=== PATIENT | female | born 1930 | race Caucasian/White ===

== ENCOUNTER 2017-07-11 12:10 | Inpatient (IN) | payer OTHER ==
[~2017-07-11] VITALS: Ht 157.5 cm; Wt 78.1 kg
[~2017-07-11 12:10] MED LIST: ALENDRONATE SOD70 M1 PO; ASPIR 8181 MG PO; BENICAR40 MG PO; DONEPEZIL HCL10 M1 PO; HEMORRHOIDAL TOP; HYDROXYCHLOROQ200 M2 PO; LEVOTHYROXINE25 MCG PO; NORVASC5 M1 PO; OMEPRAZOLE20 M2 PO; PERCOCET 325 MG1 TA2 PO; PREDNISOLO15 MG/5 M4 PO; PREDNISONE5 M1 PO; RED YEAST RICE600 M1 PO; SIMVASTATIN20 MG PO; SULFASALAZINE500 M2 PO; VITAMIN D31000 UNI2 PO; [UNRECOGNIZED DRUG - OTHER] TOP
--- NOTE | 2017-07-11 12:13 | ED MVC/FALL/TRAUMA COMPLAINT ---
History of Present Illness General Chief Complaint: Fall Stated Complaint: S/P FALL, LEFT HIP PAIN Source: patient, family, old records, EMS Exam Limitations: no limitations Vital Signs & Intake/Output Vital Signs & Intake/Output Vital Signs Date Time Temp Pulse Resp B/P B/P Pulse O2 O2 Flow FiO2 Mean Ox Delivery Rate 07/11 1622 96.3 61 18 119/54 97 Room Air 07/11 1433 66 18 123/59 96 Room Air 07/11 1316 98 Room Air 07/11 1213 98.5 66 18 142/65 98 Room Air Allergies Coded Allergies: adhesive tape (UNKNOWN 07/11/17) Reconcile Medications Amlodipine Besylate (Norvasc) 5 MG TABLET 1 TAB PO DAILY HEART (Reported) Cholecalciferol (Vitamin D3) 1,000 UNIT TABLET 1 TAB PO DAILY VITAMIN SUPPORT (Reported) Donepezil HCl 10 MG TABLET 1 TAB PO DAILY MEMORY (Reported) Hydroxychloroquine Sulfate 200 MG TABLET 1 TAB PO BID UNKNOWN (Reported) Levothyroxine Sodium 25 MCG TABLET 1 TAB PO DAILY AC THYROID (Reported) Losartan Potassium 100 MG TABLET 1 TAB PO DAILY HEART (Reported) Omeprazole 20 MG CAPSULE.DR 1 CAP PO DAILY GI (Reported) Prednisone 5 MG TABLET 1 TAB PO DAILY STEROID (Reported) Red Yeast Rice 600 MG CAPSULE 1 CAP PO DAILY SUPPLEMENT (Reported) Sulfasalazine 500 MG TABLET 1 TAB PO BID UNKNOWN (Reported) Vit C/E/Zn/Coppr/Lutein/Zeaxan (Preservision Areds 2 Softgel) 250-200-40 CAPSULE 1 CAP PO BID EYE (Reported) Triage Nurses Notes Reviewed? yes Onset: Abrupt Duration: hour(s): (1), constant Timing: recent history Severity: moderate, severe Severity Numbers: 10 Injuries/Fall Location: lower extremity Method of Injury: fall Loss of Consciousness: no loss of consciousness Modifying Factors: Worsens With: movement, palpation. Associated Symptoms: denies HPI: 86 year old female with hypertension, hyperlipidemia, sigmoid colon resection, cecum polypectomy, and PMR, and abdominal hysterectomy presents brought in by ambulance status post mechanical fall onto her left hip just prior to arrival resents complaining of 10 out of 10 severe aching left hip pain radiating into her thigh. She was unable to get up. She did not hit her head there is no loss of consciousness per family. She is acting her normal self per family. On arrival radha denies headache neck back or chest or abdominal pain no back pain she denies any foot or ankle pain. She is not on blood thinners (Marquis Hodges) Past History Travel History Traveled to [place] past 21 day No Medical History Any Pertinent Medical History? see below for history Cardiovascular: CAD, hypertension Gastrointestinal: GERD Endocrine: hypoparathyroidism Tetanus Vaccine: 09/23/11 Surgical History Surgical History: hysterectomy, colon resection Psychosocial History Who do you live with Patient/Self What is your primary language Ivorian Family History Hx Contributory? No (Marquis Hodges) Review of Systems Review of Systems Constitutional: Reports: see HPI. Comments Review of systems: See HPI, All other systems negative. Constitutional, no chills no fever, HEENT: no sore throat no congestion Cardiovascular: No chest pain , no palpitation Skin: no rashes, no change in skin Respiratory: No dyspnea no cough GI: No nausea no vomiting, : No dysuria No hematuria, no frequency Muscle skeletal: joint pain, no back pain, no neck pain, Neurologic: , no headache Heme/endocrine: No bruising Immunology: No lymphadenopathy (Marquis Hodges) Physical Exam Physical Exam General Appearance: well developed/nourished, alert, awake Comments: Well-developed well-nourished person in no acute distress HEENT: Normal EENT exam; PERRL, EOMI, no nystagmus. HEAD is atraumatic. moist mucous membranes. Neck: Supple, nontender, normal range of motion without pain or tenderness Back: Nontender, no CVA tenderness. Full range of motion Cardiovascular: Regular rate and rhythms no murmurs rubs or gallops, normal JVP Respiratory: Chest nontender.There were no bony deformities, no asymmetry. No respiratory distress. Patient speaking in full complete sentences. Breath sounds clear to auscultation bilaterally: NO W/R/R Abdomen: Soft, nontender nondistended, no appreciable organomegaly. Normal bowel sounds. No rebound/guarding, No appreciable enlargement of the abdominal aorta, No ascites. Shoulder: Atraumatic/Stable. FROM . Elbow: Atraumatic/stable. FROM. No laxity Upper arm/Forearm: Atraumatic. Nontender. No edema, 5 out of 5 quality auditor strength noted to bilateral upper extremities Hand/Wrist: Atraumatic/stable. Skin intact. FROM Pulses: Normal/equal radial pulses bilaterally. Brisk cap refill Hip/Pelvis: The right hip is Atraumatic/Stable. Range of motion is unable to be assessed in the left hip secondary to pain there is no shortening or external rotation Knee: The left knee range of motion is unable to be assessed secondary to pain in the left hip, the right knee is Atraumatic/stable. FROM of the right knee. No joint swelling, no effusion. No laxity. Negative rachel/anterior drawer test. No pain with ROM Leg: Atraumatic. Nontender. No edema, 5 out of 5 strength in the lower extremity, normal dorsiflexion of great toe bilaterally, gross sensation is intact Ankle/Foot: Atraumatic/stable. Skin intact. FROM. No swelling, no effusion. No laxity on exam Pulses: Normal/equal DP/PT pulses bilaterally. Brisk cap refill Neuro: Alert oriented x3, motor sensory normal, cranial nerves II through XII grossly intact. There were no obvious focal neurologic abnormalities. Skin: No appreciable rash on exposed skin, skin is warm and dry. Psych: Mood and affect is normal, memory and judgment is normal. Core Measures ACS in differential dx? No CVA/TIA Diagnosis No Sepsis Present: No Sepsis Focused Exam Completed? No (Meli BATES,Marquis) Progress Differential Diagnosis: C/T/L spine injury, ext injury, ICH, pelvis injury, spinal cord injury Plan of Care: Orders Procedure Date/time Status CBC WITHOUT DIFFERENTIAL 07/12 0600 Active BASIC ELECTROLYTES PLUS BUN&CR 07/12 0600 Active Regular Diet 07/11 D Active PT Evaluate & Treat 07/11 1520 Active Pathway - chart 07/11 1441 Active House Staff 07/11 1441 Active Patient Data 07/11 1441 Active Code Status 07/11 1441 Active OXYGEN SETUP (GEN) 07/11 1436 Active Saline Lock 07/11 1436 Active Admit to inpatient 07/11 1436 Active Vital Signs 07/11 1436 Active Activity/Ambulation 07/11 1436 Active Code Status 07/11 1436 Complete [place], Insertion/Removal/Asses 07/11 1430 Active CULTURE,URINE 07/11 1430 Active EKG 07/11 1428 Active Intake & Output 07/11 1349 Active PARTIAL THROMBOPLASTIN TIME 07/11 1222 Complete PROTHROMBIN TIME 07/11 1222 Complete COMPREHENSIVE METABOLIC PANEL 07/11 1222 Complete CBC WITHOUT DIFFERENTIAL 07/11 1222 Complete VTE Mechanical Prophylaxis 07/11 UNK Active Current Medications Sig/Anthony Start time Last Medication Dose Stop Time Status Admin Amlodipine Besylate 5 MG DAILY 07/12 1000 AC (Norvasc) Donepezil HCl 10 MG DAILY 07/12 1000 AC (Aricept) Losartan Potassium 100 MG DAILY 07/12 1000 AC (Cozaar) Prednisone 5 MG DAILY 07/12 1000 AC Levothyroxine Sodium 0.025 MG DAILY AC 07/12 0700 AC (Synthroid) Omeprazole 20 MG DAILY AC 07/12 0700 AC (Prilosec) Hydroxychloroquine 200 MG BID 07/11 2200 AC Sulfate (Plaquenil 200MG Tab) Sulfasalazine 500 MG BID 07/11 2200 CAN (Azulfidine 500 MG Tablet) Sodium Chloride 1,000 ML Q13H 07/11 1530 AC 07/11 (Normal Saline 0.9%) 1554 Heparin Sodium 5,000 UNIT Q8 07/11 1524 AC 07/11 (Porcine) 1553 Acetaminophen 325 MG Q6P PRN 07/11 1445 AC (Tylenol) Morphine Sulfate 2 MG Q4P PRN 07/11 1445 AC (MORPHINE SULFATE) Laboratory Tests 07/11/17 1238: Anion Gap 12, Estimated GFR 47 L, BUN/Creatinine Ratio 27.3 H, Glucose 87, Calcium 10.4 H, Total Bilirubin 0.7, AST 27, ALT 32, Alkaline Phosphatase 68, Total Protein 6.2 L, Albumin 3.6, Globulin 2.6, Albumin/Globulin Ratio 1.4, PT 11.6, INR 1.06, APTT 25, CBC w Diff NO MAN DIFF REQ, RBC 4.07 L, MCV 88.3, MCH 29.0, MCHC 32.8 L, RDW 13.9, MPV 7.2 L, Gran % 74.8, Lymphocytes % 16.5 L, Monocytes % 7.6, Eosinophils % 0.7, Basophils % 0.4, Absolute Granulocytes 8.2 H, Absolute Lymphocytes 1.8, Absolute Monocytes 0.8 H, Absolute Eosinophils 0.1 , Absolute Basophils 0 Microbiology 07/11 1545 URINE ROUT: Urine Culture - RECD X-rays ordered patient medicated with morphine 4 IV labs ordered old records reviewed CAT scan ordered after x-rays were reviewed, case discussed with Dr. SMITH, Patient medicated with additional 2 mg of morphine fully catheter placed I spoke and went over the findings of the CAT scan x-rays with Dr. munguia- radiologist's commenting that there is no significant displacement he advised that the patient should be admitted to medicine they will consult however there is no surgical intervention needed at this time. I discussed with the patient and her family her findings and need for admission Case discussed with Dr. mariscal will admit Diagnostic Imaging: Viewed by Me: Radiology Read. Discussed w/RAD: Radiology Read. Radiology Impression: PATIENT: RADHA CARDONA PRESENT AGE: 86 PATIENT ACCOUNT NO: [id number] : 30 LOCATION: [facility] ORDERING PHYSICIAN: Marquis BATES SERVICE DATE: 07/11/17 EXAM TYPE: RAD - XRY-CHEST XRAY, SINGLE VIEW EXAMINATION:\H\ \N\XR CHEST CLINICAL INFORMATION: Pelvic fracture COMPARISON: Multiple priors, most recently 2017 TECHNIQUE: Frontal view of the chest was obtained. FINDINGS: The lungs are well expanded. There is no focal consolidation, edema, or effusion. No pneumothorax. The cardiomediastinal silhouette is unchanged, with a calcified aorta. No acute osseous abnormality. IMPRESSION: No acute pulmonary findings. DICTATED BY: Darin Zambrano MD DATE/TIME DICTATED:07/11/171403 RN REGISTRY:SARAH DATE/TIME TRANSCRIBED:07/11/171403 CONFIDENTIAL, DO NOT COPY WITHOUT APPROPRIATE AUTHORIZATION. <Electronically signed in Other Vendor System> SIGNED BY: Darin Zambrano MD 07/11/171407, PATIENT: RADHA CARDONA PRESENT AGE: 86 PATIENT ACCOUNT NO: [id number] : 30 LOCATION: [facility] ORDERING PHYSICIAN: Marquis BATES SERVICE DATE: 07/11/17122 EXAM TYPE: RAD - XRY-AP PELVIS; XRY-HIP 2-3 VIEWS, LEFT; XRY-KNEE COMPLETE LEFT EXAMINATION: XR PELVIS X-RAY LEFT KNEE X-RAY LEFT HIP CLINICAL INFORMATION: Hip fracture. COMPARISON: CT pelvis dated 07/11/2017. TECHNIQUE: AP view of the pelvis. Frontal and lateral radiographs of the left knee were performed. 3 radiographs of the left hip were performed. FINDINGS: There are multiple pelvic fractures identified. The left superior and inferior pubic rami are fractured. The superior pubic ramus appears fractured in several locations. Fracture does not extend to the level of the symphysis pubis. Comminuted fractures of the inferior pubic ramus are seen. There is an iliac bone fracture, comminuted. The left femoral head appears well-seated within the acetabula. There is degenerative change of the left hip joint. The proximal left femur appears intact. The left knee joint appears intact. There is mild medial and lateral knee joint space narrowing. IMPRESSION: Comminuted fractures of the left superior and inferior pubic rami. Comminuted left iliac bone fracture. DICTATED BY: Juaquin Lee MD DATE/TIME DICTATED:07/11/171403 RN REGISTRY:SARAH DATE/TIME TRANSCRIBED:07/11/171403 CONFIDENTIAL, DO NOT COPY WITHOUT APPROPRIATE AUTHORIZATION. <Electronically signed in Other Vendor System> SIGNED BY: Juaquin Lee MD 07/11/171426, PATIENT: RADHA CARDONA PRESENT AGE: 86 PATIENT ACCOUNT NO: [id number] : 30 LOCATION: [facility] ORDERING PHYSICIAN: Marquis BATES SERVICE DATE: 07/11/17 EXAM TYPE: RAD - XRY-CHEST XRAY, SINGLE VIEW EXAMINATION:\H\ \N\XR CHEST CLINICAL INFORMATION: Pelvic fracture COMPARISON: Multiple priors, most recently 05/27/2017 TECHNIQUE: Frontal view of the chest was obtained. FINDINGS: The lungs are well expanded. There is no focal consolidation, edema, or effusion. No pneumothorax. The cardiomediastinal silhouette is unchanged, with a calcified aorta. No acute osseous abnormality. IMPRESSION: No acute pulmonary findings. DICTATED BY: Darin Zambrano MD DATE /TIME DICTATED:07/11/171403 RN REGISTRY:SARAH DATE/TIME TRANSCRIBED: 07/11/171403 CONFIDENTIAL, DO NOT COPY WITHOUT APPROPRIATE AUTHORIZATION. < Electronically signed in Other Vendor System> SIGNED BY: Darin Zambrano MD 07/11/171407 Initial ED EKG: normal sinus rhythm, nonspecific ST T wave chg (Marquis Hodges) Departure Departure Time of Disposition: 1429 Disposition: STILL A PATIENT Condition: Stable Clinical Impression Primary Impression: Pubic ramus fracture Referrals: Lul Mariscal MD (PCP/Family) Departure Forms: Customer Survey General Discharge Information Admission Note Spoke With: Lul Mariscal MD Documentation of Exam: Documentation of any treatments & extenuating circumstances including Concerns Regarding Discharge (functional status, medication knowledge or non-compliance, living conditions, etc.) that warrant an admission rather than observation: IV pain control orthopedist consult trend labs premature discharge would BE medically harmful patient will require short-term rehabilitation placement as she is nonweightbearing at this time (Marquis Hodges) PA/MOVEMENT EDUCATION SPECIALIST Co-Sign Statement Statement: ED Attending supervision documentation- x I saw and evaluated the patient. I have also reviewed all the pertinent lab results and diagnostic results. I agree with the findings and the plan of care as documented in the PA's/MOVEMENT EDUCATION SPECIALIST's documentation. Fall, pelvic fractures non operative [] I have reviewed the ED Record and agree with the PA's/MOVEMENT EDUCATION SPECIALIST's documentation. [] Additions or exceptions (if any) to the PAs/MOVEMENT EDUCATION SPECIALIST's note and plan are summarized below: [] (Elias BUSTILLO,Jackson)
[2017-07-11] MEDS ORDERED: PRESERVISION A1 EAC1 PO (12:58)
[2017-07-11] MEDS ORDERED: LOSARTAN POTAS100 M1 PO (12:58)
[2017-07-11 12:59] LABS: PT 11.6 SEC (9.4-12.5); PTT 25 SEC (25-37)
[2017-07-11 13:02] LABS: ABSOLUTE BASOPHIL COUNT 0 /CUMM (0.0-0.2); ABSOLUTE EOSINOPHIL COUNT 0.1 /CUMM (0.0-0.7); ABSOLUTE GRANULOCYTE CT 8.2 /CUMM (1.4-6.5); ABSOLUTE LYMPH COUNT 1.8 /CUMM (1.2-3.4); ABSOLUTE MONOCYTE COUNT 0.8 /CUMM (0.10-0.60); BASOPHIL % 0.4 % (0.0-2.0); EOSINOPHIL % 0.7 % (0-5); GRANULOCYTE % 74.8 % (42.2-75.2); HEMATOCRIT 35.9 % (37-47); MEAN CORPUSCULAR HGB CONC 32.8 G/DL (33.0-37.0); MEAN CORPUSCULAR VOLUME 88.3 FL (81.0-99.0); MEAN PLATELET VOLUME 7.2 FL (7.4-10.4); PLATELET COUNT 223 /CUMM (130-400); RBC DISTRIBUTION WIDTH 13.9 % (11.5-14.5); RED BLOOD CELL CT 4.07 /CUMM (4.20-5.40); WHITE BLOOD CELL COUNT 10.9 /CUMM (4.8-10.8)
--- NOTE | 2017-07-11 14:06 | CT SCAN REPORT ---
EXAMINATION: CT PELVIS WITHOUT CONTRAST CLINICAL INFORMATION: Fall with left hip pain COMPARISON: CT performed 04/18/2014. TECHNIQUE: Helical scanning was performed with submillimeter collimation through the pelvis. Sagittal and coronal multiplanar 2-D reconstructions were obtained. DLP: 916 mGy-cm FINDINGS: PELVIS: There is stranding along the left pelvic sidewall suggestive of hematoma. Asymmetric fullness of the musculature as well, suggestive of hematoma. The bladder is unremarkable. No significant mass effect. The visualized bowel appears unremarkable. No lymphadenopathy. OSSEOUS STRUCTURES: There are multiple pelvic fractures. There are fractures of the left superior and inferior pubic rami. The superior pubic ramus is fractured in multiple locations, with no significant displacement of the fragments. The fracture line does not extend to the pubic symphysis or to the acetabulum. There is a comminuted left inferior pubic ramus fracture with offset of the fracture fragments. Once again, the pubic symphysis is maintained, with chondrocalcinosis noted. There is a comminuted left iliac bone fracture. This involves the iliac wing and crest. The fracture line extends to the anterior inferior aspect of the sacroiliac joint, without widening of the joint. Multiple interposed cortical fragments are seen along the fracture. The femoral heads remain well-seated within their acetabula. Mild degenerative changes are seen at both hips with joint space narrowing and osteophyte formation. Chondrocalcinosis present. Degenerative changes at the lower lumbar spine. IMPRESSION: 1. Comminuted fractures of the left superior and inferior pubic rami. 2. Comminuted left iliac bone fracture. 3. Small hematoma along the left pelvic sidewall and within the associated musculature.
--- NOTE | 2017-07-11 14:08 | RADIOLOGY REPORT ---
EXAMINATION:\H\ \N\XR CHEST CLINICAL INFORMATION: Pelvic fracture COMPARISON: Multiple priors, most recently 05/27/2017 TECHNIQUE: Frontal view of the chest was obtained. FINDINGS: The lungs are well expanded. There is no focal consolidation, edema, or effusion. No pneumothorax. The cardiomediastinal silhouette is unchanged, with a calcified aorta. No acute osseous abnormality. IMPRESSION: No acute pulmonary findings.
--- NOTE | 2017-07-11 14:27 | RADIOLOGY REPORT ---
EXAMINATION: XR PELVIS X-RAY LEFT KNEE X-RAY LEFT HIP CLINICAL INFORMATION: Hip fracture. COMPARISON: CT pelvis dated 07/11/2017. TECHNIQUE: AP view of the pelvis. Frontal and lateral radiographs of the left knee were performed. 3 radiographs of the left hip were performed. FINDINGS: There are multiple pelvic fractures identified. The left superior and inferior pubic rami are fractured. The superior pubic ramus appears fractured in several locations. Fracture does not extend to the level of the symphysis pubis. Comminuted fractures of the inferior pubic ramus are seen. There is an iliac bone fracture, comminuted. The left femoral head appears well-seated within the acetabula. There is degenerative change of the left hip joint. The proximal left femur appears intact. The left knee joint appears intact. There is mild medial and lateral knee joint space narrowing. IMPRESSION: Comminuted fractures of the left superior and inferior pubic rami. Comminuted left iliac bone fracture.
--- NOTE | 2017-07-11 14:43 | History & Physical ---
Anshu BUSTILLO,[facility] 07/11/17 1440: General Information and HPI MD Statement: I have seen and personally examined RADHA CARDONA and documented this H&P. The patient is a 86 year old F who presented with a patient stated chief complaint of [fall, L hip pain ]. Source of Information: patient, old records Exam Limitations: no limitations History of Present Illness: Patient is a 86-year-old female with past medical history of polymyalgia rheumatica and seronegative rheumatoid arthritis on steroids and hydroxychloroquine, dementia on Aricept, cardiac catheterization on 07/23, hypertension, dyslipidemia, mild depression, colon cancer with history of colectomy and polypectomy, hemorrhoidectomy, GERD, ovarian cyst, asthma/COPD. She presented to [facility] on 07/11 after a mechanical fall. Patient was in usual state of health until today when she suffered a mechanical fall after tripping over the stairs to her house. She experienced intense pain in her left hip and needed help from her to get up and go inside. Patient's daughter was called who came home and called ambulance. The patient denies any loss of consciousness. She did not hit her head, there was no period of blacking out. She denies any palpitations, dizziness, chest pain, lightheadedness before the fall. She denies any seizure-like activity, tongue bite, urinary incontinence or fecal incontinence. The fall was witnessed by the . At present patient patient complains of intense aching pain radiating from left hip to thigh. She is unable to sit up. Allergies/Medications Allergies: Coded Allergies: adhesive tape (UNKNOWN 07/11/17) Home Med list Acetaminophen (Tylenol) 325 MG TABLET 325 MG PO Q6P PRN PAIN SCALE 1-3 (MILD) Acetaminophen 500 MG TABLET 1 TAB PO Q8P PRN PAIN SCALE 4-6 (MODERATE) Amlodipine Besylate (Norvasc) 5 MG TABLET 1 TAB PO DAILY HEART (Reported) Budesonide 0.25 MG/2 ML AMPUL.NEB 1 Vial INH/MICHAEL BID COPD ASTHMA (Reported) Cholecalciferol (Vitamin D3) 1,000 UNIT TABLET 1 TAB PO DAILY VITAMIN SUPPORT (Reported) Cyanocobalamin (Vitamin B-12) 1,000 MCG TABLET 1 TAB PO DAILY SUPPLEMENT Docusate Sodium 100 MG CAPSULE 100 MG PO BID CONSTIPATION Donepezil HCl 10 MG TABLET 1 TAB PO DAILY MEMORY (Reported) Hydroxychloroquine Sulfate 200 MG TABLET 1 TAB PO BID RA (Reported) Levothyroxine Sodium 25 MCG TABLET 1 TAB PO DAILY AC THYROID (Reported) Losartan Potassium 100 MG TABLET 1 TAB PO DAILY HEART (Reported) Omeprazole 20 MG CAPSULE.DR 1 CAP PO DAILY GI (Reported) Polyethylene Glycol 3350 (Miralax) 17 GRAM/DOSE POWDER 17 GM PO DAILY CONSTIPATION Prednisone 5 MG TABLET 1 TAB PO DAILY STEROID (Reported) Red Yeast Rice 600 MG CAPSULE 1 CAP PO DAILY SUPPLEMENT (Reported) Sennosides (Senokot) 8.6 MG TABLET 2 TAB PO AT BEDTIME PRN CONSTIPATION Tramadol HCl (Ultram) 50 MG TABLET 1 TAB PO BIDP PRN PAIN SCALE 7-10 (SEVERE) Vit C/E/Zn/Coppr/Lutein/Zeaxan (Preservision Areds 2 Softgel) 250-200-40 CAPSULE 1 CAP PO BID EYE (Reported) Compliance With Home Meds: GOOD Past History Travel History Traveled to [place] past 21 day No Medical History Neurological: NONE EENT: NONE Cardiovascular: CAD, hypertension Respiratory: NONE Gastrointestinal: GERD Hepatic: NONE Renal: NONE Musculoskeletal: NONE Psychiatric: NONE Endocrine: hypothyroidism Blood Disorders: NONE Cancer(s): NONE Tetanus Vaccine: 09/23/11 Surgical History Surgical History: CABG, hysterectomy, colon resection, hernia repair Past Family/Social History Family History Relations & Conditions if any Relation not specified for: *No pertinent family history Psychosocial History Where do you live? Home Who Do You Live With? spouse Smoking Status: Never Smoked ETOH Use: denies use Illicit Drug Use: denies illicit drug use Functional Ability ADLs Independent: dressing, eating, toileting, bathing. Ambulation: independent IADLs Independent: shopping, housework, finances, food prep, telephone, transportation , medication admin. Review of Systems Review of Systems Constitutional: Denies: chills, fever. EENTM: Reports: no symptoms. Cardiovascular: Denies: chest pain, palpitations. Respiratory: Denies: cough, orthopnea, short of breath. GI: Reports: no symptoms. Genitourinary: Reports: no symptoms. Musculoskeletal: Reports: joint pain. Skin: Reports: no symptoms. Exam & Diagnostic Data Last 24 Hrs of Vital Signs/I&O Vital Signs Date Time Temp Pulse Resp B/P B/P Pulse O2 O2 Flow FiO2 Mean Ox Delivery Rate 07/11 1433 66 18 123/59 96 Room Air 07/11 1316 98 Room Air 07/11 1213 98.5 66 18 142/65 98 Room Air Intake & Output 07/11 1600 07/11 0800 07/11 0000 Intake Total 100 Output Total Balance 100 Intake, IV 100 Patient 170 lb Weight Weight Estimated Measurement Method Physical Exam General Appearance Alert, Oriented X3, Cooperative Skin No Rashes HEENT Atraumatic Neck Supple Cardiovascular Regular Rate, Normal S1, Normal S2, systolic murmur? Lungs Clear to Auscultation, anteriorly asculated Abdomen Normal Bowel Sounds, Soft, No Tenderness Neurological Normal Speech Extremities No Edema, L hip/L knee ROM not tested due to pain, no shortnening or extral rotation noticed on inspection Body Front and Back (Adult) 1) fracture site, tenderness, no heamtoma felt Last 24 Hrs of Labs/Hajrinder: Laboratory Tests 07/11/17 1238: Anion Gap 12, Estimated GFR 47 L, BUN/Creatinine Ratio 27.3 H, Glucose 87, Calcium 10.4 H, Total Bilirubin 0.7, AST 27, ALT 32, Alkaline Phosphatase 68, Total Protein 6.2 L, Albumin 3.6, Globulin 2.6, Albumin/Globulin Ratio 1.4, PT 11.6, INR 1.06, APTT 25, CBC w Diff NO MAN DIFF REQ, RBC 4.07 L, MCV 88.3, MCH 29.0, MCHC 32.8 L, RDW 13.9, MPV 7.2 L, Gran % 74.8, Lymphocytes % 16.5 L, Monocytes % 7.6, Eosinophils % 0.7, Basophils % 0.4, Absolute Granulocytes 8.2 H, Absolute Lymphocytes 1.8, Absolute Monocytes 0.8 H, Absolute Eosinophils 0.1 , Absolute Basophils 0 Microbiology 07/11 1430 URINE ROUT: Urine Culture - ORD Diagnostic Data CXR Results No acute pulmonary findings. Other Results XRY-AP PELVIS; XRY-HIP 2-3 VIEWS, LEFT; XRY-KNEE COMPLETE LEFT Comminuted fractures of the left superior and inferior pubic rami. Comminuted left iliac bone fracture. CT PELVIS WO IV CONTRAST 1. Comminuted fractures of the left superior and inferior pubic rami. 2. Comminuted left iliac bone fracture. 3. Small hematoma along the left pelvic sidewall and within the associated musculature. Assessment/Plan Assessment: Patient is a 86-year-old female with past medical history of polymyalgia rheumatica and seronegative rheumatoid arthritis on steroids and hydroxychloroquine, , dementia on Aricept, cardiac catheterization on 07/23, hypertension, dyslipidemia, mild depression, colon cancer with history of colectomy and polypectomy, hemorrhoidectomy, GERD, ovarian cyst, mild asthma, mild COPD. she was brought in by ambulance after a mechanical fall. On presentation vital signs WNL Admission labs are significant for leukocytosis 10.9, anemia, creatinine of 1.1, BUN of 30, hypercalcemia of 10.4 Imaging findings dictated above In ED patient received 2 mg and 4 mg of IV morphine and IV Tylenol. She is being admitted to general medicine floor and is being treated and evaluated for following condition #Mechanical fall resulting in Comminuted fractures of the left superior, inferior pubic rami and left iliac bone fracture Patient experienced mechanical fall after tripping over the stairs. The fall was witnessed there was sonia loss of consciousness. She did not hit her head, there was no period of blacking out. She denies any palpitations, dizziness, chest pain, lightheadedness before the fall. She denies any seizure-like activity, tongue bite, urinary incontinence or fecal incontinence. -Admit to general medicine floor -Jamaal Melendrez MD orthopedic has been contacted by ED was suggested conservative management but he will see the patient. Official consult has been placed. -Adequate pain management with IV Tylenol and IV morphine along with lidocaine patch -Orthopedic evaluation -PT evaluation -Patient will benefit from short-term rehabilitation placement -Monitor site of fracture for hematoma development #Anemia H/H 11.8/35.9 -Continue to monitor -Monitor for any bleeding or hematoma development -Check iron studies, folic acid and B12 #Leukocytosis Probably reactive and patient is somewhat dehydrated as well. she is afebrile chest x-ray is clear there is no obvious source of infection -Continue to monitor fever and WBC count -Blood culture 2 -Monitor off antibiotics #Elevated BUN Patient's creatinine on presentation is 1.1 which is at her baseline, BUN is 30, she is probably dehydrated -Gentle IV hydration #History of hypothyroidism Continue levothyroxine and check TSH #Chronic medical conditions hypertension, hyperlipidemia, dementia, PMR, seronegative rheumatoid arthritis, GERD Continue home doses of amlodipine, losartan, donepezil, hydroxychloroquine, prednisone, omeprazole Heart healthy diet/DVT prophylaxis with Alps and subcutaneous heparin Q8/full code Core Measures/Misc (12/29) Acute Coronary Syndrome ACS Diagnosis: No Congestive Heart Failure Congestive Heart Failure Diagnosis No Cerebrovascular Accident CVA/TIA Diagnosis: No VTE (View Protocol) VTE Risk Factors Age>40 No Mechanical VTE Prophylaxis d/t N/A MechProphylax Ordered No VTE Pharm Prophylaxis d/t NA PharmProphylax ordered Sepsis (View protocol) Sepsis Present: No Luke Ro 07/11/17 1600: Assessment/Plan As Ranked By This Provider Problem List: 1. Pubic ramus fracture Resident Review Statement Resident Statement: examined this patient, discussed with internet ecommerce specialist Other Findings: Patient is a 86-year-old pleasant woman with a history of hypertension, polymyalgia rheumatica, RA, mild asthma, mild COPD, dyslipidemia, GERD, was brought into [facility] from her home status post a mechanical fall. Patient had a mechanical fall earlier this morning while trying to take groceries from the car to her house. She was walking up the stairs and tripped and fell down. She denies any lightheadedness, dizziness, aura, headache, chest discomfort, palpitations, seizure-like activity, bowel and bladder incontinence at the time of the fall. She had no loss of consciousness and felt immense pain on her left hip post the fall. Her helped her up and carried her to the house. Ambulance was called by after the episode. Family reports patient was acting herself post the incident. Vitals in the ED was stable Labs showed a white count of 10.9, creatinine 1.1(baseline 1) X-ray showed comminuted fractures of left superior and inferior pubic rami and comminuted left iliac bone fracture. An abdominal CT showed a small hematoma along the left pelvic sidewall and within the associated musculature. Physical exam General: Awake, alert, oriented, in no significant distress HEENT: PERRLA, EOMI Chest: Clear breath sounds CVS S1 and S2 heard, no murmurs Extremities: Unable to move left lower extremity. Tenderness over the left hip. All other extremities within normal limits. Reflexes intact. Assessment Comminuted fractures of left superior and inferior pubic rami Comminuted fracture of left iliac bone Acute kidney injury Polymyalgia rheumatica Seronegative RA Hypertension Hypothyroidism Plan Admit to [facility] Gentle hydration with IV normal saline at 75 cc an hour. Pain control with IV morphine every 4 when necessary Orthopedic consult(discussed with Jamaal Melendrez MD, who recommended conservative management ) Recheck BEP in a.m. Continue home medications prednisone, sulfasalazine and hydroxychloroquine Continue levothyroxin, amlodipine and omeprazole Physical therapy consult DVT prophylaxis subcutaneous heparin Full code Severe pain pathway Pamela BUSTILLO,[facility] 07/11/17 1805: Attending MD Review Statement Attending Statement Attending MD Statement: examined this patient, discuss w/resident/PA/WHEEL AND PINION INSPECTOR, agreed w/resident/PA/WHEEL AND PINION INSPECTOR, discussed with family, reviewed EMR data (avail), discussed with nursing, discussed with case mgmt, reviewed images, amended to note Attending Assessment/Plan: Agree with the bowel Seen and examined independently Discussed with the family at the bedside Exam as noted above Patient is a 86-year-old female with past medical history of polymyalgia rheumatica and seronegative rheumatoid arthritis on steroids and hydroxychloroquine, , dementia on Aricept, cardiac catheterization on 07/23, hypertension, dyslipidemia, mild depression, colon cancer with history of colectomy and polypectomy, hemorrhoidectomy, GERD, ovarian cyst, mild asthma, mild COPD. she was brought in by ambulance after a mechanical fall. Issues include multiple fractures as noted above Osteoporosis Rheumatoid arthritis and polymyalgia on chronic steroids and Plaquenil Mild to moderate COPD with ongoing wheezing Chronic constipation with previous history of colon cancer with previous colectomy and polypectomy and hemorrhoidectomy GERD Mild asthma Mild dementia Dyslipidemia Mild anxiety and depression All the risk factors for coronary artery disease but negative stress test and negative angiogram with no acute coronary events Recommendation Admitted to the hospital Gentle IV hydration Follow hemoglobin and hematocrit Adequate pain medication Start Senokot and docusate twice a day and MiraLAX daily Avoid constipation Physical therapy to see tomorrow with nonweightbearing to the left lower extremity with transfers and sliding. His Would need rehabilitation Continue outpatient medications No need for stress dose steroids Check iron folic acid and B12 Continue B12 by mouth Continue Aricept Continue her levothyroxine and other medications Patient is unable to use inhalers use [id number] DuoNeb and budesonide 0.25 twice a day Patient is unable to use inhalers use [id number] DuoNeb and budesonide 0.25 twice a day
--- NOTE | 2017-07-11 17:35 | Cons- Orthopedic ---
General Information and HPI Consulting Request Date of Consult: 07/11/17 Requested By: Pamela BUSTILLO,Lul Villaseñor Reason for Consult: FALL WITH LEFT PELVIC INJURY Source of Information: patient, family Exam Limitations: no limitations History of Present Illness: 86 Y/O female arrives via EMS after a traumatic fall where she injured her left hip. Patient states she was walking up a step and slipped and fell on her left side. She denies syncope, dizziness or LOC prior to or after the fall. She immediately was helped by her family. She denies any headache neck pain or visual changes. She was unable to get up after the fall due to left hip pain and discomfort. She has a past medicalhistory significant for polymyalgia rheumatica and RA on steroids and hydroxychloroquine. Allergies/Medications Allergies: Coded Allergies: adhesive tape (UNKNOWN 07/11/17) Home Med List: Amlodipine Besylate (Norvasc) 5 MG TABLET 1 TAB PO DAILY HEART (Reported) Cholecalciferol (Vitamin D3) 1,000 UNIT TABLET 1 TAB PO DAILY VITAMIN SUPPORT (Reported) Donepezil HCl 10 MG TABLET 1 TAB PO DAILY MEMORY (Reported) Hydroxychloroquine Sulfate 200 MG TABLET 1 TAB PO BID UNKNOWN (Reported) Levothyroxine Sodium 25 MCG TABLET 1 TAB PO DAILY AC THYROID (Reported) Losartan Potassium 100 MG TABLET 1 TAB PO DAILY HEART (Reported) Omeprazole 20 MG CAPSULE.DR 1 CAP PO DAILY GI (Reported) Prednisone 5 MG TABLET 1 TAB PO DAILY STEROID (Reported) Red Yeast Rice 600 MG CAPSULE 1 CAP PO DAILY SUPPLEMENT (Reported) Sulfasalazine 500 MG TABLET 1 TAB PO BID UNKNOWN (Reported) Vit C/E/Zn/Coppr/Lutein/Zeaxan (Preservision Areds 2 Softgel) 250-200-40 CAPSULE 1 CAP PO BID EYE (Reported) Past History Medical History Neurological: NONE EENT: NONE Cardiovascular: CAD, hypertension Respiratory: asthma, COPD Gastrointestinal: NONE (h/o colon ca), GERD Hepatic: NONE Renal: NONE Musculoskeletal: NONE, osteoarthritis, osteoporosis, rheumatoid arthritis Psychiatric: NONE (demetia) Endocrine: NONE (dyslipidemia), hypothyroidism Blood Disorders: NONE Cancer(s): NONE Surgical History Pertinent Surgical History: CABG, hysterectomy, colon resection hernia repair Family History Relations & Conditions If Any: Relation not specified for: *No pertinent family history Psychosocial History Where Do You Live? Home Who Do You Live With? spouse Smoking Status: Never Smoked ETOH Use: denies use Illicit Drug Use: denies illicit drug use Functional Ability ADLs Independent: dressing, eating, toileting, bathing. Ambulation: independent IADLs Independent: shopping, housework, finances, food prep, telephone, transportation , medication admin. Review of Systems Review of Systems: denies - syncope, dizzinesss, or headache no recent fevers fls or infections chest- NO SOB, no cough heart- no CP abd - no abdominal pain, no loss of bowel or bladder function ext - left posterior back and hip pain Exam & Diagnostic Data Vital Signs and I&O Vital Signs Date Time Temp Pulse Resp B/P B/P Pulse O2 O2 Flow FiO2 Mean Ox Delivery Rate 07/11 1622 96.3 61 18 119/54 97 Room Air 07/11 1433 66 18 123/59 96 Room Air 07/11 1316 98 Room Air 07/11 1213 98.5 66 18 142/65 98 Room Air Intake & Output 07/11 1600 07/11 0800 07/11 0000 07/10 1600 07/10 0800 07/10 0000 Intake Total 100 Output Total Balance 100 Intake, IV 100 Patient 170 lb Weight Weight Estimated Measurement Method Physical Exam: Patient is alert and oriented, answers questions appropriately family present -daughter and friend HEENT -WNL Neck- supple, NT, AROM chest -CTA symmetric without rales ronchi or wheeze heart- RRR without MRG abdomen- rounded without distention, NT left LE -pain along anterior thigh and groin, posterior buttock tenderness ROM not tested, sensory lower extremty bilateral normal distal pulses intact lyons inplace without hematuria Admission Lab Results I reviewed the following labs: Laboratory Tests 07/11 1238 Chemistry Sodium (137 - 145 mmol/L) 143 Potassium (3.5 - 5.1 mmol/L) 3.9 Chloride (98 - 107 mmol/L) 109 H Carbon Dioxide (22 - 30 mmol/L) 22 Anion Gap (5 - 16) 12 BUN (7 - 17 mg/dL) 30 H Creatinine (0.5 - 1.0 mg/dL) 1.1 H Estimated GFR (>60 ml/min) 47 L BUN/Creatinine Ratio (7 - 25 %) 27.3 H Glucose (65 - 99 mg/dL) 87 Calcium (8.4 - 10.2 mg/dL) 10.4 H Total Bilirubin (0.2 - 1.3 mg/dL) 0.7 AST (14 - 36 U/L) 27 ALT (9 - 52 U/L) 32 Alkaline Phosphatase (<127 U/L) 68 Total Protein (6.3 - 8.2 g/dL) 6.2 L Albumin (3.5 - 5.0 g/dL) 3.6 Globulin (1.9 - 4.2 gm/dL) 2.6 Albumin/Globulin Ratio (1.1 - 2.2 %) 1.4 Coagulation PT (9.4 - 12.5 SEC) 11.6 INR (0.90 - 1.19) 1.06 APTT (25 - 37 SEC) 25 Hematology CBC w Diff NO MAN DIFF REQ WBC (4.8 - 10.8 /CUMM) 10.9 H RBC (4.20 - 5.40 /CUMM) 4.07 L Hgb (12.0 - 16.0 G/DL) 11.8 L Hct (37 - 47 %) 35.9 L MCV (81.0 - 99.0 FL) 88.3 MCH (27.0 - 31.0 PG) 29.0 MCHC (33.0 - 37.0 G/DL) 32.8 L RDW (11.5 - 14.5 %) 13.9 Plt Count (130 - 400 /CUMM) 223 MPV (7.4 - 10.4 FL) 7.2 L Gran % (42.2 - 75.2 %) 74.8 Lymphocytes % (20.5 - 51.1 %) 16.5 L Monocytes % (1.7 - 9.3 %) 7.6 Eosinophils % (0 - 5 %) 0.7 Basophils % (0.0 - 2.0 %) 0.4 Absolute Granulocytes (1.4 - 6.5 /CUMM) 8.2 H Absolute Lymphocytes (1.2 - 3.4 /CUMM) 1.8 Absolute Monocytes (0.10 - 0.60 /CUMM) 0.8 H Absolute Eosinophils (0.0 - 0.7 /CUMM) 0.1 Absolute Basophils (0.0 - 0.2 /CUMM) 0 Assessment/Plan Assessment/Plan 86y/o female with mechanical fall left superior and inferior pubic rami fxs left iliac bone fx with comminution and extension into SI inferiorly pelvic hematoma -small along pelvic sidewall continue to follow H/H, hydration conservative management of fractures, no surgery PT to see NWB left lower extremity -transfers and sliding pivots DVT prophalxis as per medicine pain management -IV tylenol/morphine PRN will need rehab/ECF Other Findings/Comments: Aneesh Consult Acknowledgment - Thank you for your consult request.
--- NOTE | 2017-07-11 18:05 | Admission Certification ---
Admission Certification Certification Statement - As attending physician, I certify that at the time of - admission, based on clinical presentation, severity of - symptoms, need for further diagnostic testing and - therapeutic interventions, and risk of adverse outcomes - without in-hospital treatment, in my clinical assessment, - this patient requires an acute hospital stay for a minimum - of two nights or longer. I have also considered psychsocial - factors such as support system, advanced age, financial - issues, cognitive issues, and failed out-patient treatments, - past re-admission history, safety of patient, and lack of - compliance as applicable. Specific rationale supporting this admission is: multiple pelvic fracture, hematoma and severe pain
[2017-07-11] MEDS ORDERED: BUDESONIDE0.25 MG/1 INH/SOL (19:06)
[2017-07-11] MEDS ORDERED: SENOKOT8.6 M2 PO (19:12)
[2017-07-11] MEDS ORDERED: VITAMIN B-121000 MC3 PO (19:12)
[2017-07-11] MEDS ORDERED: MIRALAX119 GM PO (19:12)
[2017-07-11] MEDS ORDERED: DOCUSATE SODIU100 M3 PO (19:12)
[2017-07-11] MEDS ORDERED: MORPHINE SU4 MG/1 M2 IV (19:12)
[2017-07-11] MEDS ORDERED: TYLENOL325 M1 PO (19:12)
--- NOTE | 2017-07-11 19:14 | Patient Discharge Instructions ---
Discharge Instructions General Discharge Information You were seen/treated for: PELVIC FRACTURE Watch for these problems: fever, chills, shortness of breath Special Instructions: -Plz follow up witrh PCP within 1 week of discharge -plz follow up with orthopedic after discharge -continue lovenox for 2 weeks after dischrge from hospital or till you start ambulating -you have a Beavers's catheter in, will need to be removed after 3 days of discharge Diet Continue normal diet: Yes Activity Full Activity/No Limits: No Activity Limited to: No weight bearing Acute Coronary Syndrome Inclusion Criteria At DC or during hospital stay patient has or had the following: ACS DIAGNOSIS No Discharge Core Measures Meds if any: Prescribed or Continued at Discharge Meds if any: NOT Prescribed or Continued at Discharge Congestive Heart Failure Inclusion Criteria At DC or during hospital stay patient has or had the following: CHF DIAGNOSIS No Discharge Core Measures Meds if any: Prescribed or Continued at Discharge Meds if any: NOT Prescribed or Continued at Discharge Cerebrovascular accident Inclusion Criteria At DC or during hospital stay patient has or had the following: CVA/TIA Diagnosis No Discharge Core Measures Meds if any: Prescribed or Continued at Discharge Meds if any: NOT Prescribed or Continued at Discharge Venous thromboembolism Inclusion Criteria VTE Diagnosis No VTE Type NONE VTE Confirmed by (Test) NONE Discharge Core Measures - Per Current guidelines, there needs to be overlap - treatment for the first 5 days of Warfarin therapy. - If discharged on Warfarin prior to 5 days of - overlap therapy, the patient will need to be - assessed for post discharge needs including - *Post discharge parental anticoagulation - *Warfarin and/or parental anticoagulation education - *Follow up date to check INR post discharge At least 5 days overlap therapy as Inpatient No Meds if any: Prescribed or Continued at Discharge Note: Overlap Therapy is Warfarin and Anticoagulant Meds if any: NOT Prescribed or Continued at Discharge
--- NOTE | 2017-07-11 19:17 | Discharge Summary ---
Visit Information Visit Dates Admission Date: 07/11/17 Discharge Date: 07/15/17 Hospital Course Course Attending Physician: Lul Santiago MD Primary Care Physician: Lul Santiago MD Hospital Course: Patient is a 86-year-old pleasant woman with a history of hypertension, polymyalgia rheumatica, RA, mild asthma, mild COPD, dyslipidemia, GERD, was brought into [place] from her home status post a mechanical fall. X-ray showed comminuted fractures of left superior and inferior pubic rami and comminuted left iliac bone fracture. An abdominal CT showed a small hematoma along the left pelvic sidewall and within the associated musculature. Problem list Comminuted fractures of left superior and inferior pubic rami Comminuted fracture of left iliac bone Acute kidney injury Polymyalgia rheumatica Seronegative RA Hypertension Hypothyroidism Hospital course: Patient was admitted to the [facility] floor and treated with IV fluids and IV pain medications Orthopedics was consulted who recommended conservative management. The patient was made nonweightbearing-transfers and sliding. Pain was controlled by IV morphine and Tylenol. Physical therapy worked with the patient while in the hospital. She was discharged to short-term rehabilitation -Continue lovenox for 2 weeks after dischrge from hospital or till she starts ambulating -Pt has a Beavers's catheter in, will need to be removed after 2-3 days of discharge -F/U with PCP and Orthopedics -Maintain pt on extensive bowel regemin she has history of colon cancer s/p colectomy/polypectomy Allergies: Coded Allergies: adhesive tape (UNKNOWN 07/11/17) Disposition Summary Disposition Principal Diagnosis: Comminuted fractures of left superior and inferior pubic rami Comminuted fracture of left iliac bone Additional Diagnosis: ANA Discharge Disposition: SNF Discharge Instructions General Discharge Information Code Status: Full Code Patient's Diet: As tolerated Patient's Activity: Non weight bearing Follow-Up Instructions/Appts: F/U with Dr. Santiago within 1 week of discharge F/u with orthopedic in 1-2 months of discharge Medications at Discharge Discharge Medications: Continue taking these medications: Donepezil HCl (Donepezil HCl) 10 MG TABLET 1 Tablet ORAL DAILY Levothyroxine Sodium (Levothyroxine Sodium) 25 MCG TABLET 1 Tablet ORAL DAILY BEFORE BREAKFAST Prednisone (Prednisone) 5 MG TABLET 1 Tablet ORAL DAILY Hydroxychloroquine Sulfate (Hydroxychloroquine Sulfate) 200 MG TABLET 1 Tablet ORAL TWICE DAILY Qty = 30 Red Yeast Rice (Red Yeast Rice) 600 MG CAPSULE 1 Capsule ORAL DAILY Omeprazole (Omeprazole) 20 MG CAPSULE.DR 1 Capsule ORAL DAILY Amlodipine Besylate (Norvasc) 5 MG TABLET 1 Tablet ORAL DAILY Cholecalciferol (Vitamin D3) 1,000 UNIT TABLET 1 Tablet ORAL DAILY Vit C/E/Zn/Coppr/Lutein/Zeaxan (Preservision Areds 2 Softgel) 250-200-40 CAPSULE 1 Capsule ORAL TWICE DAILY Losartan Potassium (Losartan Potassium) 100 MG TABLET 1 Tablet ORAL DAILY Qty = 90 Budesonide (Budesonide) 0.25 MG/2 ML AMPUL.NEB 1 Vial Inhale Solution TWICE DAILY Qty = 120 Start taking the following new medications: Sennosides (Senokot) 8.6 MG TABLET 2 Tablet ORAL AT BEDTIME as needed for CONSTIPATION Qty = 40 No Refills Acetaminophen (Tylenol) 325 MG TABLET 325 Milligram ORAL EVERY SIX HOURS NEEDED as needed for PAIN SCALE 1-3 ( MILD) Qty = 20 No Refills Docusate Sodium (Docusate Sodium) 100 MG CAPSULE 100 Milligram ORAL TWICE DAILY Qty = 30 No Refills Polyethylene Glycol 3350 (Miralax) 17 GRAM/DOSE POWDER 17 Gram ORAL DAILY Qty = 1 No Refills Cyanocobalamin (Vitamin B-12) 1,000 MCG TABLET 1 Tablet ORAL DAILY Qty = 30 No Refills Acetaminophen (Acetaminophen) 500 MG TABLET 1 Tablet ORAL EVERY 8 HOURS NEEDED as needed for PAIN SCALE 4-6 (MODERATE ) Qty = 20 No Refills Morphine Sulfate (Morphine Sulfate ER) 15 MG TABLET.ER 1 Tablet ORAL TWICE DAILY as needed for Break through Qty = 30 No Refills Enoxaparin Sodium (Lovenox) 40 MG/0.4 ML SYRINGE 0.4 Milliliters Inject into fatty tissue DAILY Qty = 10 No Refills Instructions: CONTINUE FOR 2 WEEKS TILL PT IS AMBULATORY Lactulose (Lactulose) 10 GRAM/15 ML SOLUTION 30 Milliliters ORAL TWICE DAILY as needed for CONSTIPATION Qty = 1800 No Refills Instructions: HOLD FOR DIARRHEA Bisacodyl (Dulcolax) 10 MG SUPP.RECT 1 Suppository RECTAL DAILY as needed for CONSTIPATION Qty = 10 No Refills Instructions: HOLD FOR DIARRHEA Copies To: Pamela BUSTILLO,Lul Villaseñor
[2017-07-11 19:38] VITALS: BP 112/60
--- NOTE | 2017-07-12 05:12 | PN- Housestaff ---
Assessment/Plan Assessment: Patient is a 86-year-old female with past medical history of polymyalgia rheumatica and seronegative rheumatoid arthritis on steroids and hydroxychloroquine, , dementia on Aricept, cardiac catheterization on 07/23, hypertension, dyslipidemia, mild depression, colon cancer with history of colectomy and polypectomy, hemorrhoidectomy, GERD, ovarian cyst, mild asthma, mild COPD. she was brought in by ambulance after a mechanical fall. Problem list Alongwith Assessment and Plan #Mechanical fall resulting in Comminuted fractures of the left superior, inferior pubic rami and left iliac bone fracture * Patient experienced mechanical fall after tripping over the stairs. * Jamaal Melendrez MD orthopedic has been contacted by ED was suggested conservative management but he will see the patient in am. * CT pain management with IV Tylenol and IV morphine along with lidocaine patch * PT evaluation * Patient will benefit from short-term rehabilitation placement * Monitor site of fracture for hematoma development #Anemia H/H 11.8/35.9 * Continue to monitor * Monitor for any bleeding or hematoma development * follow iron studies, folic acid and B12 #Leukocytosis * Probably reactive and patient is somewhat dehydrated as well. she is afebrile chest x-ray is clear there is no obvious source of infection * Continue to monitor fever and WBC count * follow Blood culture 2 * Monitor off antibiotics #Elevated BUN * Patient's creatinine on presentation is 1.1 which is at her baseline, BUN is 30, she is probably dehydrated * Ct Gentle IV hydration #History of hypothyroidism * Continue levothyroxine #Chronic medical conditions hypertension, hyperlipidemia, dementia, PMR, seronegative rheumatoid arthritis, GERD * Continue home doses of amlodipine, losartan, donepezil, hydroxychloroquine, prednisone, omeprazole Heart healthy diet DVT prophylaxis with Alps + subcutaneous heparin Q8 full code Problem List: 1. Pubic ramus fracture Pain Ratin Pain Location: current mx Pain Goal: Remain pain free Pain Plan: current plan Tomorrow's Labs & Rationales: cbc to follow h/h
[2017-07-12 06:52] VITALS: BP 126/68
[2017-07-12 09:05] LABS: ABSOLUTE BASOPHIL COUNT 0 /CUMM (0.0-0.2); ABSOLUTE EOSINOPHIL COUNT 0.1 /CUMM (0.0-0.7); ABSOLUTE GRANULOCYTE CT 5.4 /CUMM (1.4-6.5); ABSOLUTE LYMPH COUNT 1.4 /CUMM (1.2-3.4); ABSOLUTE MONOCYTE COUNT 0.9 /CUMM (0.10-0.60); BASOPHIL % 0.4 % (0.0-2.0); EOSINOPHIL % 0.8 % (0-5); GRANULOCYTE % 70.3 % (42.2-75.2); MEAN CORPUSCULAR HGB 29.7 PG (27.0-31.0); MEAN CORPUSCULAR HGB CONC 33.8 G/DL (33.0-37.0); MEAN CORPUSCULAR VOLUME 87.9 FL (81.0-99.0); MEAN PLATELET VOLUME 7.2 FL (7.4-10.4); PLATELET COUNT 163 /CUMM (130-400); RBC DISTRIBUTION WIDTH 13.7 % (11.5-14.5); RED BLOOD CELL CT 3.47 /CUMM (4.20-5.40); WHITE BLOOD CELL COUNT 7.8 /CUMM (4.8-10.8)
[2017-07-12 09:22] LABS: HEMATOCRIT 30.5 % (37-47)
[2017-07-12 13:47] VITALS: BP 142/70
--- NOTE | 2017-07-12 16:29 | PN- Att Addend ---
Attending Addendum Attending Brief Note Covering attending note. Patient laying in bed, daughter at the bedside. Complaining of some pain. Vital signs are stable. No fever. No new changes on physical exam. Urine culture no growth after 1 day her white count within normal limits continue present treatment patient may need short-term rehabilitation 24 TOTALS 07/12 0000 07/11 0000 Intake Total 840 Output Total 600 Balance 240 Intake, IV 600 Intake, Oral 240 Output, Urine 600 Patient 166 lb Weight Weight Bed scale Measurement Method Current Medications Sig/Anthony Start time Last Medication Dose Route Stop Time Status Admin Acetaminophen 1,000 MG Q8P PRN 07/12 1030 AC PO Acetaminophen 325 MG Q6P PRN 07/11 1445 DC 07/12 PO 0958 Albuterol Sulfate 3 ML BID 07/11 2200 AC 07/12 INH 1158 Amlodipine Besylate 5 MG DAILY@07/12 2000 AC PO Amlodipine Besylate 5 MG DAILY 07/12 1000 DC PO Artificial Tears 1 GTT Q10MIN PRN 07/12 1030 AC OU Budesonide 0.25 MG BID 07/12 1000 DC RES Budesonide 0.25 MG BID 07/12 1000 AC 07/12 INH 1158 Cyanocobalamin 1,000 MCG DAILY 07/11 1902 AC 07/12 PO 0953 Docusate Sodium 100 MG BID 07/11 2200 AC 07/12 PO 0953 Donepezil HCl 10 MG DAILY 07/12 1000 AC 07/12 PO 0955 Heparin Sodium 5,000 UNIT Q8 07/11 1524 AC 07/12 (Porcine) SC 1331 Hydroxychloroquine 200 MG BID 07/11 2200 AC 07/12 Sulfate PO 0955 Ipratropium [place] 2.5 ML BID 07/11 2200 AC 07/12 INH 1158 Levothyroxine Sodium 0.025 MG DAILY AC 07/12 0700 AC 07/12 PO 0512 Losartan Potassium 100 MG DAILY 07/12 1000 AC 07/12 PO 1022 Morphine Sulfate 15 MG Q4 HRS NEEDED PRN 07/12 1030 AC 07/12 PO 1514 Morphine Sulfate 0 .STK-MED ONE 07/11 1724 DC .ROUTE Morphine Sulfate 2 MG Q4P PRN 07/11 1445 DC 07/12 IV 0820 Omeprazole 20 MG DAILY AC 07/12 0700 AC 07/12 PO 0512 Polyethylene Glycol 17 GM DAILY 07/12 1000 AC 07/12 PO 0956 Prednisone 5 MG DAILY 07/12 1000 AC 07/12 PO 0955 Senna 187 MG AT BEDTIME 07/11 2200 AC 07/11 PO 205 Sodium Chloride 1,000 ML Q13H 07/11 1530 AC 07/11 IV 205 Laboratory Tests 07/12/17 0800: Anion Gap 6, Estimated GFR 59 L, BUN/Creatinine Ratio 18.9, CBC w Diff NO MAN DIFF REQ, RBC 3.47 L, MCV 87.9, MCH 29.7, MCHC 33.8, RDW 13.7, MPV 7.2 L, Gran % 70.3, Lymphocytes % 17.4 L, Monocytes % 11.1 H, Eosinophils % 0.8, Basophils % 0.4, Absolute Granulocytes 5.4, Absolute Lymphocytes 1.4, Absolute Monocytes 0.9 H, Absolute Eosinophils 0.1, Absolute Basophils 0 07/11/17 1238: Anion Gap 12, Estimated GFR 47 L, BUN/Creatinine Ratio 27.3 H, Glucose 87, Calcium 10.4 H, Iron 72, TIBC 330, Ferritin 86.5, Total Bilirubin 0.7, AST 27, ALT 32, Alkaline Phosphatase 68, Total Protein 6.2 L, Albumin 3.6, Globulin 2.6 , Albumin/Globulin Ratio 1.4, Vitamin B12 416, Folate > 20.0 H, PT 11.6, INR 1.06, APTT 25, CBC w Diff NO MAN DIFF REQ, RBC 4.07 L, MCV 88.3, MCH 29.0, MCHC 32.8 L, RDW 13.9, MPV 7.2 L, Gran % 74.8, Lymphocytes % 16.5 L, Monocytes % 7.6, Eosinophils % 0.7, Basophils % 0.4, Absolute Granulocytes 8.2 H, Absolute Lymphocytes 1.8, Absolute Monocytes 0.8 H, Absolute Eosinophils 0.1, Absolute Basophils 0 Vital Signs Date Time Temp Pulse Resp B/P B/P Pulse O2 O2 Flow FiO2 Mean Ox Delivery Rate 07/12 1347 98.8 95 20 142/70 92 Room Air 07/12 1159 91 Room Air 07/12 0652 98.4 69 20 126/68 92 Room Air 07/11 2144 Room Air 07/11 1938 98.4 67 20 112/60 94 Room Air 07/11 1807 98 Room Air BUN and creatinine improved.
[2017-07-12 22:19] VITALS: BP 120/70
[2017-07-13 06:29] VITALS: BP 142/70
--- NOTE | 2017-07-13 08:25 | PN- Housestaff ---
Subjective Follow-up For: Mechanical fall resulting in Comminuted fractures of the left superior, inferior pubic rami and left iliac bone fracture Subjective: Patient reports L side pelvic pain 9/10 in severity that relieves with the pain medication. She denies SOB, CP, palpitations, nausea, vomiting, lightheadedness Review of Systems Constitutional: Reports: see HPI. Objective Last 24 Hrs of Vital Signs/I&O Vital Signs Date Time Temp Pulse Resp B/P B/P Pulse O2 O2 Flow FiO2 Mean Ox Delivery Rate 07/13 628 98.1 88 18 142/70 92 Room Air 07/12 2219 98.0 86 18 120/70 91 Room Air 07/12 2106 94 07/12 1347 98.8 95 20 142/70 92 Room Air Intake & Output 07/13 1600 07/13 0800 07/13 0000 Intake Total 600 880 Output Total 550 1200 Balance 50 -320 Intake, IV 600 600 Intake, Oral 280 Output, Urine 550 1200 Patient 171 lb Weight Weight Bed scale Measurement Method Physical Exam General Appearance: Alert, Oriented X3, Cooperative, No Acute Distress Cardiovascular: Regular Rate, Normal S1, Normal S2, No Murmurs Lungs: Clear to Auscultation, Normal Air Movement Abdomen: Normal Bowel Sounds, Soft, No Tenderness Neurological: Sensation Intact, RLE full ROM, LLE limited ROM due to pain Extremities: No Edema Current Medications: Current Medications Sig/Anthony Start time Last Medication Dose Route Stop Time Status Admin Acetaminophen 650 MG .STK-MED ONE 07/12 1039 DC PO 07/12 1040 Acetaminophen 1,000 MG Q8P PRN 07/12 1030 AC PO Acetaminophen 650 MG .STK-MED ONE 07/12 0958 DC PO 07/12 0959 Acetaminophen 325 MG Q6P PRN 07/11 1445 DC 07/12 PO 0958 Albuterol Sulfate 3 ML BID 07/11 2200 AC 07/12 INH 203 Amlodipine Besylate 5 MG DAILY@07/12 AC 07/12 PO 212 Amlodipine Besylate 5 MG DAILY 07/12 1000 DC PO Artificial Tears 1 GTT Q10MIN PRN 07/12 1030 AC OU Budesonide 0.25 MG BID 07/12 1000 DC RES Budesonide 0.25 MG BID 07/12 1000 AC 07/12 INH 204 Cyanocobalamin 1,000 MCG DAILY 07/11 1902 AC 07/12 PO 0953 Docusate Sodium 100 MG BID 07/11 2200 AC 07/12 PO 2126 Donepezil HCl 10 MG DAILY 07/12 1000 AC 07/12 PO 0955 Heparin Sodium 5,000 UNIT Q8 07/11 1524 AC 07/13 (Porcine) SC 0606 Hydroxychloroquine 200 MG BID 07/11 2200 AC 07/12 Sulfate PO 2126 Ipratropium [place] 2.5 ML BID 07/11 2200 AC 07/12 INH 2039 Levothyroxine Sodium 0.025 MG DAILY AC 07/12 0700 AC 07/13 PO 0604 Losartan Potassium 100 MG DAILY 07/12 1000 AC 07/12 PO 1022 Morphine Sulfate 15 MG Q4 HRS NEEDED PRN 07/12 1030 AC 07/13 PO 0607 Morphine Sulfate 2 MG Q4P PRN 07/11 1445 DC 07/12 IV 0820 Omeprazole 20 MG DAILY AC 07/12 0700 AC 07/13 PO 0604 Ondansetron HCl 4 MG ONCE ONE 07/13 0845 DC IV 07/13 0900 Polyethylene Glycol 17 GM DAILY 07/12 1000 AC 07/12 PO 0956 Prednisone 5 MG DAILY 07/12 1000 AC 07/12 PO 0955 Senna 187 MG AT BEDTIME 07/11 2200 AC 07/12 PO 2126 Sodium Chloride 1,000 ML Q13H 07/11 1530 AC 07/12 IV 2233 Last 24 Hrs of Lab/Harjinder Results Last 24 Hrs of Labs/Mics: Laboratory Tests 07/13/17 0818: Anion Gap 9, Estimated GFR 59 L, BUN/Creatinine Ratio 13.3, CBC w Diff NO MAN DIFF REQ, RBC 3.61 L, MCV 89.0, MCH 29.2, MCHC 32.8 L, RDW 13.9, MPV 7.4, Gran % 71.0, Lymphocytes % 16.2 L, Monocytes % 11.3 H, Eosinophils % 1.3, Basophils % 0.2, Absolute Granulocytes 7.2 H, Absolute Lymphocytes 1.7, Absolute Monocytes 1.2 H, Absolute Eosinophils 0.1, Absolute Basophils 0 Lines/Diet/Fluids Beavers Still Needed? Yes Assessment/Plan Assessment: Ms. Khalil is a 86-year-old female with past medical history of polymyalgia rheumatica and seronegative rheumatoid arthritis on steroids and hydroxychloroquine, dementia on Aricept, cardiac catheterization on 07/23, hypertension, dyslipidemia, mild depression, colon cancer with history of colectomy and polypectomy, hemorrhoidectomy, GERD, ovarian cyst, mild asthma, mild COPD. she was brought in by ambulance after a mechanical fall. Problem list: Mechanical fall resulting in Comminuted fractures of the left superior, inferior pubic rami and left iliac bone fracture Plan: Conservative management as per [facility] Continue Amlodipine, Donepezil, Hydroxychloroquine, Levothyroxine, Losartan Continue Prdenisone Continue Morphine for pain Discontinue NS IVF, renal function wnl Orthopedist recommendations appreciated Possible discharge to [facility] in a.m. if stable Diet: Regular DVT ppx: Code: FULL Problem List: 1. Pubic ramus fracture Pain Ratin Pain Location: Pelvic area Pain Goal: Pain 7 or less Pain Plan: Morphine Tomorrow's Labs & Rationales: none
[2017-07-13 08:58] LABS: ABSOLUTE BASOPHIL COUNT 0 /CUMM (0.0-0.2); ABSOLUTE EOSINOPHIL COUNT 0.1 /CUMM (0.0-0.7); ABSOLUTE GRANULOCYTE CT 7.2 /CUMM (1.4-6.5); ABSOLUTE LYMPH COUNT 1.7 /CUMM (1.2-3.4); ABSOLUTE MONOCYTE COUNT 1.2 /CUMM (0.10-0.60); BASOPHIL % 0.2 % (0.0-2.0); EOSINOPHIL % 1.3 % (0-5); HEMATOCRIT 32.2 % (37-47); MEAN CORPUSCULAR HGB 29.2 PG (27.0-31.0); MEAN CORPUSCULAR HGB CONC 32.8 G/DL (33.0-37.0); MEAN PLATELET VOLUME 7.4 FL (7.4-10.4); PLATELET COUNT 179 /CUMM (130-400); RBC DISTRIBUTION WIDTH 13.9 % (11.5-14.5); RED BLOOD CELL CT 3.61 /CUMM (4.20-5.40); WHITE BLOOD CELL COUNT 10.2 /CUMM (4.8-10.8)
[2017-07-13 13:48] VITALS: BP 124/68
--- NOTE | 2017-07-13 14:18 | PN- Att Addend ---
Attending Addendum Attending Brief Note Covering attending note: Patient is comfortable in bed, still complains of pain in the injured area Vital signs are stable no fever and no new changes on physical. Urine culture no growth after 2 days continue present treatment and my need short-term rehabilitation. Intake & Output 07/13 1600 07/13 0400 07/12 1600 07/12 0400 07/11 1600 07/11 0400 Intake Total 600 880 840 740 100 Output Total 950 1200 1300 600 Balance -350 -320 -460 140 100 Intake, IV 600 600 600 500 100 Intake, Oral 280 240 240 Output, Urine 950 1200 1300 600 Patient 171 lb 160 lb 166 lb 170 lb Weight Weight Bed scale Bed scale Estimated Measurement Method Current Medications Sig/Anthony Start time Last Medication Dose Route Stop Time Status Admin Acetaminophen 1,000 MG Q8P PRN 07/12 1030 AC PO Albuterol Sulfate 3 ML BID 07/11 2200 AC 07/12 INH 2039 Amlodipine Besylate 5 MG DAILY@07/12 2000 AC 07/12 PO 2126 Artificial Tears 1 GTT Q10MIN PRN 07/12 1030 AC OU Budesonide 0.25 MG BID 07/12 1000 AC 07/12 INH 2041 Cyanocobalamin 1,000 MCG DAILY 07/11 1902 AC 07/13 PO 1056 Docusate Sodium 100 MG BID 07/11 2200 AC 07/13 PO 1057 Donepezil HCl 10 MG DAILY 07/12 1000 AC 07/13 PO 1056 Heparin Sodium 5,000 UNIT Q8 07/11 1524 AC 07/13 (Porcine) SC 0606 Hydroxychloroquine 200 MG BID 07/11 2199 AC 07/13 Sulfate PO 1055 Ipratropium [place] 2.5 ML BID 07/11 2200 AC 07/12 INH 2039 Levothyroxine Sodium 0.025 MG DAILY AC 07/12 0700 AC 07/13 PO 0604 Losartan Potassium 100 MG DAILY 07/12 1000 AC 07/13 PO 1056 Morphine Sulfate 15 MG Q4 HRS NEEDED PRN 07/12 1030 AC 07/13 PO 1103 Omeprazole 20 MG DAILY AC 07/12 0700 AC 07/13 PO 0604 Ondansetron HCl 4 MG ONCE ONE 07/13 0845 DC IV 07/13 0900 Polyethylene Glycol 17 GM DAILY 07/12 1000 AC 07/13 PO 1058 Prednisone 5 MG DAILY 07/12 1000 AC 07/13 PO 1056 Senna 187 MG AT BEDTIME 07/11 2200 AC 07/12 PO 2126 Sodium Chloride 1,000 ML Q13H 07/11 1530 DC 07/12 IV 2233 Laboratory Tests 07/13/17 0818: Anion Gap 9, Estimated GFR 59 L, BUN/Creatinine Ratio 13.3, CBC w Diff NO MAN DIFF REQ, RBC 3.61 L, MCV 89.0, MCH 29.2, MCHC 32.8 L, RDW 13.9, MPV 7.4, Gran % 71.0, Lymphocytes % 16.2 L, Monocytes % 11.3 H, Eosinophils % 1.3, Basophils % 0.2, Absolute Granulocytes 7.2 H, Absolute Lymphocytes 1.7, Absolute Monocytes 1.2 H, Absolute Eosinophils 0.1, Absolute Basophils 0 07/12/17 0800: Anion Gap 6, Estimated GFR 59 L, BUN/Creatinine Ratio 18.9, CBC w Diff NO MAN DIFF REQ, RBC 3.47 L, MCV 87.9, MCH 29.7, MCHC 33.8, RDW 13.7, MPV 7.2 L, Gran % 70.3, Lymphocytes % 17.4 L, Monocytes % 11.1 H, Eosinophils % 0.8, Basophils % 0.4, Absolute Granulocytes 5.4, Absolute Lymphocytes 1.4, Absolute Monocytes 0.9 H, Absolute Eosinophils 0.1, Absolute Basophils 0 07/11/17 1238: Anion Gap 12, Estimated GFR 47 L, BUN/Creatinine Ratio 27.3 H, Glucose 87, Calcium 10.4 H, Iron 72, TIBC 330, Ferritin 86.5, Total Bilirubin 0.7, AST 27, ALT 32, Alkaline Phosphatase 68, Total Protein 6.2 L, Albumin 3.6, Globulin 2.6 , Albumin/Globulin Ratio 1.4, Vitamin B12 416, Folate > 20.0 H, PT 11.6, INR 1.06, APTT 25, CBC w Diff NO MAN DIFF REQ, RBC 4.07 L, MCV 88.3, MCH 29.0, MCHC 32.8 L, RDW 13.9, MPV 7.2 L, Gran % 74.8, Lymphocytes % 16.5 L, Monocytes % 7.6, Eosinophils % 0.7, Basophils % 0.4, Absolute Granulocytes 8.2 H, Absolute Lymphocytes 1.8, Absolute Monocytes 0.8 H, Absolute Eosinophils 0.1, Absolute Basophils 0 Microbiology 07/11 1544 URINE ROUT: Urine Culture - COMP Microbiology 07/11 1544 URINE ROUT: Urine Culture - COMP Vital Signs Date Time Temp Pulse Resp B/P B/P Pulse O2 O2 Flow FiO2 Mean Ox Delivery Rate 07/13 1348 97.5 85 20 124/68 92 07/13 0629 98.1 88 18 142/70 92 Room Air 07/12 2219 98.0 86 18 120/70 91 Room Air 07/12 2106 94
[2017-07-13 22:03] VITALS: BP 130/60
[2017-07-14 06:42] VITALS: BP 128/64
--- NOTE | 2017-07-14 07:49 | PN- Housestaff ---
Subjective Follow-up For: Mechanical fall Fracture of left pubic rami and iliac bone Subjective: Patient seen and examined. In the bed. Complains of pain with slight movement. Review of system otherwise negative. Small BM today, fair sized BM on friday Remains afebrile no labs ordered over the weekend will check BEP and Mag now Review of Systems Constitutional: Reports: see HPI. Objective Last 24 Hrs of Vital Signs/I&O Vital Signs Date Time Temp Pulse Resp B/P B/P Pulse O2 O2 Flow FiO2 Mean Ox Delivery Rate 07/14 0642 98.6 83 20 128/64 91 Room Air 07/13 2203 98.0 79 20 130/60 92 Room Air 07/13 2035 79 130/60 07/13 1348 97.5 85 20 124/68 92 Intake & Output 07/14 1600 07/14 0800 07/14 0000 Intake Total 200 100 Output Total 250 452 Balance -50 -352 Intake, Oral 200 100 Output, Stool 2 Output, Urine 250 450 Patient 166 lb Weight Physical Exam General Appearance: Alert, Oriented X3, Cooperative HEENT: Atraumatic Cardiovascular: Normal S1, Normal S2 Lungs: Clear to Auscultation, Normal Air Movement Abdomen: Soft, No Tenderness Neurological: Normal Speech Assessment/Plan Assessment: Patient is a 86-year-old female with past medical history of polymyalgia rheumatica and seronegative rheumatoid arthritis on steroids and hydroxychloroquine, , dementia on Aricept, cardiac catheterization on 07/23, hypertension, dyslipidemia, mild depression, colon cancer with history of colectomy and polypectomy, hemorrhoidectomy, GERD, ovarian cyst, mild asthma, mild COPD. she was brought in by ambulance after a mechanical fall. She is being treated and evaluated for following condition #Mechanical fall resulting in Comminuted fractures of the left superior, inferior pubic rami and left iliac bone fracture Patient experienced mechanical fall after tripping over the stairs. The fall was witnessed there was sonia loss of consciousness. She did not hit her head, there was no period of blacking out. She denies any palpitations, dizziness, chest pain, lightheadedness before the fall. She denies any seizure-like activity, tongue bite, urinary incontinence or fecal incontinence. -Jamaal Melendrez MD orthopedic has been contacted ;suggested conservative management but he -Adequate pain management with IV Tylenol and morphine, ultram along with lidocaine patch -PT evaluation -Patient will benefit from short-term rehabilitation placement -Monitor site of fracture for hematoma development #Constipation Patient had 2 bowel movement since her stay, small BM today -Aggressive bowel regimen MiraLAX, senna 2 tabs at bedtime, docusate BID -We'll give lactulose 30 mL and Percocet suppository -If no bowel movement will persue Subcutaneous methylnaltrexone -Decrease morphine to BID and add ultram to regemin #Anemia H/H 11.8/35.9 -Continue to monitor -Monitor for any bleeding or hematoma development #Leukocytosis-reolved Probably reactive and patient is somewhat dehydrated as well. she is afebrile chest x-ray is clear there is no obvious source of infection -Continue to monitor fever and WBC count -Monitor off antibiotics #Elevated BUN-resolved Patient's creatinine on presentation is 1.1 which is at her baseline, BUN is 30, she was probably dehydrated -Gentle IV hydration #Chronic medical conditions hypertension, hyperlipidemia, dementia, PMR, seronegative rheumatoid arthritis, GERD, hypothyroidism Continue home doses of amlodipine, losartan, donepezil, hydroxychloroquine, prednisone, omeprazole, levothyroxine Heart healthy diet/DVT prophylaxis with Alps and subcutaneous heparin Q8/full code Problem List: 1. Pubic ramus fracture Pain Ratin Pain Location: left hip Pain Goal: Pain 4 or less Pain Plan: prn Tomorrow's Labs & Rationales: cbc bep
[2017-07-14] MEDS ORDERED: ACETAMINOPHEN500 M4 PO (08:16)
[2017-07-14] MEDS ORDERED: ULTRAM50 M1 PO (11:27)
[2017-07-14] MEDS ORDERED: SENOKOT8.6 M2 PO ×2 (11:28)
--- NOTE | 2017-07-14 14:00 | PN- Pulmonary ---
Subjective HPI/Critical Care Issues: Complains of mild constipation Did have a small bm On sig amount of morphine Objective Current Medications: Current Medications Sig/Anthony Start time Last Medication Dose Route Stop Time Status Admin Acetaminophen 1,000 MG Q8P PRN 07/12 1030 AC PO Albuterol Sulfate 3 ML BID 07/11 2200 AC 07/12 INH 2039 Amlodipine Besylate 5 MG DAILY@07/12 2000 AC 07/13 PO 2035 Artificial Tears 1 GTT Q10MIN PRN 07/12 1030 AC OU Bisacodyl 10 MG ONCE ONE 07/14 1130 DC VA 07/14 1131 Budesonide 0.25 MG BID 07/12 1000 AC 07/12 INH 2041 Cyanocobalamin 1,000 MCG DAILY 07/11 1902 AC 07/14 PO 0925 Docusate Sodium 100 MG BID 07/11 2200 AC 07/14 PO 0925 Donepezil HCl 10 MG DAILY 07/12 1000 AC 07/14 PO 0925 Heparin Sodium 5,000 UNIT Q8 07/11 1524 AC 07/14 (Porcine) SC 0540 Hydroxychloroquine 200 MG BID 07/11 2200 AC 07/14 Sulfate PO 0925 Ipratropium [place] 2.5 ML BID 07/11 2200 AC 07/12 INH 2039 Lactulose 20 GM ONCE ONE 07/14 1130 DC 07/14 PO 07/14 1131 1232 Levothyroxine Sodium 0.025 MG DAILY AC 07/12 0700 AC 07/14 PO 0539 Lidocaine 1 PAT DAILY 07/14 1320 AC EXT Losartan Potassium 100 MG DAILY 07/12 1000 AC 07/14 PO 0925 Morphine Sulfate 15 MG BID 07/14 2200 CAN PO Morphine Sulfate 15 MG BID 07/14 2200 AC PO Morphine Sulfate 15 MG Q4 HRS NEEDED PRN 07/12 1030 DC 07/14 PO 0539 Omeprazole 20 MG DAILY AC 07/12 0700 AC 07/14 PO 0539 Patient Medication 1 ED ONE ONE 07/14 1045 DC 07/14 Teaching ED 07/14 1046 1234 Polyethylene Glycol 17 GM DAILY 07/12 1000 AC 07/14 PO 0901 Prednisone 5 MG DAILY 07/12 1000 AC 07/14 PO 0925 Senna 187 MG AT BEDTIME 07/11 2200 DC 07/13 PO 2154 Senna/Docusate Sodium 2 TAB DAILY 07/14 1123 AC 07/14 PO 1231 Sodium Chloride 1,000 ML Q13H 07/14 1330 AC IV 07/15 0229 Tramadol HCl 50 MG BID 07/14 1320 DC PO Vital Signs & I&O Last 24 Hrs of Vitals and I&O: Vital Signs Date Time Temp Pulse Resp B/P B/P Pulse O2 O2 Flow FiO2 Mean Ox Delivery Rate 07/14 0642 98.6 83 20 128/64 91 Room Air 07/13 2203 98.0 79 20 130/60 92 Room Air 07/13 2035 79 130/60 Intake & Output 07/14 1600 07/14 0800 07/14 0000 Intake Total 200 100 Output Total 250 452 Balance -50 -352 Intake, Oral 200 100 Output, Stool 2 Output, Urine 250 450 Patient 166 lb Weight Impression/Plan Impression/Plan Impression/Plan: General Appearance: Alert, Oriented X3, Cooperative HEENT: Atraumatic Cardiovascular: Normal S1, Normal S2 Lungs: Clear to Auscultation, Normal Air Movement Abdomen: Soft, No Tenderness mild distention Neurological: Normal Speech Patient is a 86-year-old female with past medical history of polymyalgia rheumatica and seronegative rheumatoid arthritis on steroids and hydroxychloroquine, , dementia on Aricept, cardiac catheterization on 07/23, hypertension, dyslipidemia, mild depression, colon cancer with history of colectomy and polypectomy, hemorrhoidectomy, GERD, ovarian cyst, mild asthma, mild COPD. she was brought in by ambulance after a mechanical fall. 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 with ongoing wheezing Chronic constipation with previous history of colon cancer with previous colectomy and polypectomy and hemorrhoidectomy, needs agg bowel regimen GERD Mild asthma Mild dementia Dyslipidemia Mild anxiety and depression All the risk factors for coronary artery disease but negative stress test and negative angiogram with no acute coronary events Recommendation Agg bowel reg lactulose, with dulcolax supp Check blood work Gentle ivf 60 cc one litre of d5 normal saline Increase senokot to 2 pills at hs and cont docusate and miralax PT to see Reduce morphine to 15 bid and use prn tramadol Would need rehabilitation Continue outpatient medications Continue Aricept Continue her levothyroxine and other medications Patient is unable to use inhalers use [id number] DuoNeb and budesonide 0.25 twice a day
[2017-07-14 14:26] VITALS: BP 100/70
--- NOTE | 2017-07-14 20:42 | Event Note ---
Event Note Event Note: S: was alerted by nursing staff about convern of injury to the L thumb sustained prior to presentation at the hospital. B: Patient was admitted on 07/11/17 for a mechanical fall and pubic rami fracture. She suffered a injury to her left thumb prior to admission which was dressed in the ED. AR: Patient was seen and examined at bedside. Dressing was taken down revealing a laceration of the left distal medial aspect of the thumb approximately 1 x 0.5 cm. No active bleeding, no surrounding erythema. no associated pain or tenderness to palpation. The wound was cleaned with saline and guaze, and then dressed with bacitracin ointment, and guaze.
[2017-07-14 22:28] VITALS: BP 132/62
[2017-07-15 06:25] VITALS: BP 148/76
--- NOTE | 2017-07-15 07:12 | PN- Housestaff ---
Subjective Follow-up For: Mechanical fall Fracture of left pubic rami and iliac bone Subjective: -seen and examined continue to complain of pain in left hip -ROS otherwise negative -No overnight acute events, except nursing concern over L thumb laceration addressed by night team, I saw in am as well, located on distal medial aspect of the thumb, no active bleeding/erythema/tenderness -had a BM in everning yesterday and today in am as well moderate size Review of Systems Constitutional: Reports: see HPI. Objective Last 24 Hrs of Vital Signs/I&O Vital Signs Date Time Temp Pulse Resp B/P B/P Pulse O2 O2 Flow FiO2 Mean Ox Delivery Rate 07/15 0625 99.0 90 18 148/76 91 Room Air 07/14 2228 98.7 79 18 132/62 92 Room Air 07/14 2019 98.2 92 100/70 07/14 1426 98.2 92 20 100/70 93 Room Air 07/14 1406 Room Air Intake & Output 07/15 0800 07/15 0000 07/14 1600 Intake Total 200 1225 Output Total 800 850 600 Balance -600 375 -600 Intake, IV 675 Intake, Oral 200 550 Number 0 1 2 Bowel Movements Output, Urine 800 850 600 Patient 172 lb Weight Weight Bed scale Measurement Method Physical Exam General Appearance: Alert, Oriented X3, Cooperative, Moderate Distress HEENT: Atraumatic Cardiovascular: Normal S1, Normal S2 Lungs: Clear to Auscultation Abdomen: Soft, No Tenderness Other Physical Findings: Laceration of the left distal medial aspect of the thumb approximately 1 x 0.5 cm. No active bleeding, no surrounding erythema. no associated pain or tenderness to palpation Current Medications: Current Medications Sig/Anthony Start time Last Medication Dose Route Stop Time Status Admin Acetaminophen 1,000 MG Q8P PRN 07/12 1030 AC PO Albuterol Sulfate 3 ML BID 07/11 2199 AC 07/12 INH 2038 Amlodipine Besylate 5 MG DAILY@07/12 AC 07/14 PO 2019 Artificial Tears 1 GTT Q10MIN PRN 07/12 1030 AC OU Bisacodyl 10 MG ONCE ONE 07/14 1130 DC [place] 07/14 1131 Budesonide 0.25 MG BID 07/12 1000 AC 07/12 INH 204 Cyanocobalamin 1,000 MCG DAILY 07/11 1902 AC 07/14 PO 0925 Dextrose/Sodium 1,000 ML Q13H 07/14 1415 DC 07/14 Chloride IV 07/15 0314 1426 Docusate Sodium 100 MG BID 07/11 2200 AC 07/14 PO 2142 Donepezil HCl 10 MG DAILY 07/12 1000 AC 07/14 PO 0925 Heparin Sodium 5,000 UNIT Q8 07/11 1524 AC 07/15 (Porcine) SC 0543 Hydroxychloroquine 200 MG BID 07/11 2199 AC 07/14 Sulfate PO 2142 Ipratropium [place] 2.5 ML BID 07/11 2200 AC 07/12 INH 2039 Lactulose 20 GM ONCE ONE 07/14 1130 DC 07/14 PO 07/14 1131 1232 Levothyroxine Sodium 0.025 MG DAILY AC 07/12 0700 AC 07/15 PO 0543 Lidocaine 1 PAT DAILY 07/14 1320 AC 07/14 EXT 1424 Losartan Potassium 100 MG DAILY 07/12 1000 AC 07/14 PO 0925 Morphine Sulfate 15 MG BID 07/14 220 CAN PO Morphine Sulfate 15 MG BID 07/14 2200 AC 07/14 PO 2142 Morphine Sulfate 15 MG Q4 HRS NEEDED PRN 07/12 1030 DC 07/14 PO 0539 Omeprazole 20 MG DAILY AC 07/12 0700 AC 07/15 PO 0544 Patient Medication 1 ED ONE ONE 07/14 1045 DC 07/14 Teaching ED 07/14 1046 1234 Polyethylene Glycol 17 GM DAILY 07/12 1000 AC 07/14 PO 0901 Prednisone 5 MG DAILY 07/12 1000 AC 07/14 PO 0925 Senna 187 MG AT BEDTIME 07/11 2200 DC 07/13 PO 2154 Senna/Docusate Sodium 2 TAB DAILY 07/14 1123 AC 07/14 PO 1231 Sodium Chloride 1,000 ML Q13H 07/14 1330 DC IV 07/15 0229 Tramadol HCl 50 MG Q8P PRN 07/14 1415 AC 07/14 PO 1728 Tramadol HCl 50 MG BID 07/14 1320 DC PO Last 24 Hrs of Lab/Harjinder Results Last 24 Hrs of Labs/Mics: Laboratory Tests 07/15/17 0630: Sodium Pending, Potassium Pending, Chloride Pending, Carbon Dioxide Pending, Anion Gap Pending, BUN Pending, Creatinine Pending, BUN/Creatinine Ratio Pending , Magnesium Pending, CBC w Diff Pending, WBC Pending, RBC Pending, Hgb Pending, Hct Pending, MCV Pending, MCH Pending, MCHC Pending, RDW Pending, Plt Count Pending, MPV Pending 07/14/17 1140: Anion Gap 8, Estimated GFR 43 L, BUN/Creatinine Ratio 15.8, Magnesium 2.1 Assessment/Plan Assessment: Patient is a 86-year-old female with past medical history of polymyalgia rheumatica and seronegative rheumatoid arthritis on steroids and hydroxychloroquine, , dementia on Aricept, cardiac catheterization on 07/23, hypertension, dyslipidemia, mild depression, colon cancer with history of colectomy and polypectomy, hemorrhoidectomy, GERD, ovarian cyst, mild asthma, mild COPD. she was brought in by ambulance after a mechanical fall. She is being treated and evaluated for following condition #Mechanical fall resulting in Comminuted fractures of the left superior, inferior pubic rami and left iliac bone fracture Patient experienced mechanical fall after tripping over the stairs. The fall was witnessed there was sonia loss of consciousness. She did not hit her head, there was no period of blacking out. She denies any palpitations, dizziness, chest pain, lightheadedness before the fall. She denies any seizure-like activity, tongue bite, urinary incontinence or fecal incontinence. -Jamaal Melendrez MD orthopedic has been contacted ;suggested conservative management but he -Adequate pain management with IV Tylenol and morphine, Dilaudid with lidocaine patch -PT evaluation -Patient will benefit from short-term rehabilitation placement -Monitor site of fracture for hematoma development -Lovenox 40 mg 2 weeks after discharge -D/C Beavers catheter at short-term rehabilitation After 2-3 days #Constipation Patient had 2 bowel movement since yesterday afternoon -Aggressive bowel regimen MiraLAX, senna 2 tabs at bedtime, docusate BID -Recieved lactulose 30 mL and Percocet suppository yesterday -Decrease morphine to BID and add ultram to regemin #Anemia H/H 11.8/35.9 > 9.8/29 -Continue to monitor -Monitor for any bleeding or hematoma development -Guacic all stools #ANA-resolved after gentle hydartion 1 bag D5NS -Continue to monitor cr curve #Leukocytosis-reolved Probably reactive and patient is somewhat dehydrated as well. she is afebrile chest x-ray is clear there is no obvious source of infection -Continue to monitor fever and WBC count -Monitor off antibiotics #Elevated BUN-resolved Patient's creatinine on presentation is 1.1 which is at her baseline, BUN is 30, she was probably dehydrated -Gentle IV hydration #Chronic medical conditions hypertension, hyperlipidemia, dementia, PMR, seronegative rheumatoid arthritis, GERD, hypothyroidism Continue home doses of amlodipine, losartan, donepezil, hydroxychloroquine, prednisone, omeprazole, levothyroxine Heart healthy diet/DVT prophylaxis with Alps and subcutaneous heparin Q8/full code Problem List: 1. Pubic ramus fracture Pain Ratin Pain Location: left hip Pain Goal: Pain 4 or less Pain Plan: prn Tomorrow's Labs & Rationales: n/a
[2017-07-15 08:37] LABS: ABSOLUTE BASOPHIL COUNT 0 /CUMM (0.0-0.2); ABSOLUTE EOSINOPHIL COUNT 0.2 /CUMM (0.0-0.7); ABSOLUTE GRANULOCYTE CT 6.1 /CUMM (1.4-6.5); ABSOLUTE LYMPH COUNT 1.3 /CUMM (1.2-3.4); ABSOLUTE MONOCYTE COUNT 0.9 /CUMM (0.10-0.60); BASOPHIL % 0.2 % (0.0-2.0); GRANULOCYTE % 72.3 % (42.2-75.2); HEMATOCRIT 29.1 % (37-47); MEAN CORPUSCULAR HGB 29.6 PG (27.0-31.0); MEAN CORPUSCULAR HGB CONC 33.7 G/DL (33.0-37.0); MEAN CORPUSCULAR VOLUME 87.8 FL (81.0-99.0); MEAN PLATELET VOLUME 7.5 FL (7.4-10.4); PLATELET COUNT 175 /CUMM (130-400); RBC DISTRIBUTION WIDTH 13.4 % (11.5-14.5); RED BLOOD CELL CT 3.31 /CUMM (4.20-5.40); WHITE BLOOD CELL COUNT 8.5 /CUMM (4.8-10.8)
--- NOTE | 2017-07-15 09:52 | PN- Pulmonary ---
Subjective HPI/Critical Care Issues: In pain s/p BM DId get ivf yesterday [place] in Creat has improved since ivf Objective Current Medications: Current Medications Sig/Anthony Start time Last Medication Dose Route Stop Time Status Admin Acetaminophen 1,000 MG Q8P PRN 07/12 1030 AC PO Albuterol Sulfate 3 ML BID 07/11 2200 AC 07/12 INH 2039 Amlodipine Besylate 5 MG DAILY@07/12 AC 07/14 PO 2019 Artificial Tears 1 GTT Q10MIN PRN 07/12 1030 AC OU Bisacodyl 10 MG ONCE ONE 07/14 1130 DC [place] 07/14 1131 Budesonide 0.25 MG BID 07/12 1000 AC 07/12 INH 2041 Cyanocobalamin 1,000 MCG DAILY 07/11 1902 AC 07/14 PO 0925 Dextrose/Sodium 1,000 ML Q13H 07/14 1415 DC 07/14 Chloride IV 07/15 0314 1426 Docusate Sodium 100 MG BID 07/11 2200 AC 07/14 PO 2142 Donepezil HCl 10 MG DAILY 07/12 1000 AC 07/14 PO 0925 Heparin Sodium 5,000 UNIT Q8 07/11 1524 AC 07/15 (Porcine) SC 0543 Hydroxychloroquine 200 MG BID 07/11 2200 AC 07/14 Sulfate PO 2142 Ipratropium [place] 2.5 ML BID 07/11 2200 AC 07/12 INH 2039 Lactulose 20 GM ONCE ONE 07/14 1130 DC 07/14 PO 07/14 1131 1232 Levothyroxine Sodium 0.025 MG DAILY AC 07/12 0700 AC 07/15 PO 0543 Lidocaine 1 PAT DAILY 07/14 1320 AC 07/14 EXT 1424 Losartan Potassium 100 MG DAILY 07/12 1000 AC 07/14 PO 0925 Morphine Sulfate 15 MG BID 07/14 2200 CAN PO Morphine Sulfate 15 MG BID 07/14 2200 AC 07/14 PO 2142 Morphine Sulfate 15 MG Q4 HRS NEEDED PRN 07/12 1030 DC 07/14 PO 0539 Omeprazole 20 MG DAILY AC 07/12 0700 AC 07/15 PO 0544 Patient Medication 1 ED ONE ONE 07/14 1045 DC 07/14 Teaching ED 07/14 1046 1234 Polyethylene Glycol 17 GM DAILY 07/12 1000 AC 07/14 PO 0901 Prednisone 5 MG DAILY 07/12 1000 AC 07/14 PO 0925 Senna 187 MG AT BEDTIME 07/11 2200 DC 07/13 PO 2154 Senna/Docusate Sodium 2 TAB DAILY 07/14 1123 AC 07/14 PO 1231 Sodium Chloride 1,000 ML Q13H 07/14 1330 DC IV 07/15 0229 Tramadol HCl 50 MG Q8P PRN 07/14 1415 AC 07/14 PO 1728 Tramadol HCl 50 MG BID 07/14 1320 DC PO Vital Signs & I&O Last 24 Hrs of Vitals and I&O: Vital Signs Date Time Temp Pulse Resp B/P B/P Pulse O2 O2 Flow FiO2 Mean Ox Delivery Rate 07/15 06 99.0 90 18 148/76 91 Room Air 07/14 2228 98.7 79 18 132/62 92 Room Air 07/14 2019 98.2 92 100/70 07/14 1426 98.2 92 20 100/70 93 Room Air 07/14 1406 Room Air Intake & Output 07/15 1600 07/15 0800 07/15 0000 Intake Total 200 1225 Output Total 800 850 Balance -600 375 Intake, IV 675 Intake, Oral 200 550 Number 0 1 Bowel Movements Output, Urine 800 850 Patient 172 lb Weight Weight Bed scale Measurement Method Impression/Plan Impression/Plan Impression/Plan: General Appearance: Alert, Oriented X3, Cooperative HEENT: Atraumatic Cardiovascular: Normal S1, Normal S2 Lungs: Clear to Auscultation, Normal Air Movement Abdomen: Soft, No Tenderness mild distention Neurological: Normal Speech Thumb laceration Gait could not be evaluated Patient is a 86-year-old female with past medical history of polymyalgia rheumatica and seronegative rheumatoid arthritis on steroids and hydroxychloroquine, , dementia on Aricept, cardiac catheterization on 07/23, hypertension, dyslipidemia, mild depression, colon cancer with history of colectomy and polypectomy, hemorrhoidectomy, GERD, ovarian cyst, mild asthma, mild COPD. she was brought in by ambulance after a mechanical fall. 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 with ongoing wheezing Chronic constipation with previous history of colon cancer with previous colectomy and polypectomy and hemorrhoidectomy, needs agg bowel regimen GERD Mild asthma Mild dementia Dyslipidemia Mild anxiety and depression All the risk factors for coronary artery disease but negative stress test and negative angiogram with no acute coronary events Recommendation Agg bowel reg lactulose, with dulcolax supp Change to lovenox 40 mg daily upon dc for two weeks till pt is ambulatory PT to see Can cont morphine and change tramadol to po dilautid 2 mg po q4 prn for sig pain Would need rehabilitation Continue outpatient medications Continue Aricept Continue her levothyroxine and other medications Patient is unable to use inhalers use [id number] DuoNeb and budesonide 0.25 twice a day OK to dc [place] to remain for few more days and should be dcd in two to three days (please note on dc summary)
[2017-07-15] MEDS ORDERED: MORPHINE SULFAT15 M3 PO (10:31)
[2017-07-15] MEDS ORDERED: LOVENOX40 MG/0.1 SC (10:31)
[2017-07-15] MEDS ORDERED: DULCOLAX10 M1 RC (10:31)
[2017-07-15] MEDS ORDERED: LACTULOSE10 GM/153 PO (10:31)
[2017-07-15] MEDS ORDERED: HYDROMORPHONE HC2 M1 PO (13:13)
[2017-07-15 14:36] VITALS: BP 118/80
[2017-07-15 15:10] VITALS: BP 118/80
== END 2017-07-15 16:23 | DRG 536 ==
LOC: ERH 12:10 → ERHI 14:36 → 2NA 14:36 → EDBEDREQ 14:51 → ENRESERV 16:38 → ENTRNSPT 18:05 → CMPTRNSPT 18:26 → 2NA 18:27 → ENPENDDIS 07-15 11:58 → 2NA 07-15 16:23
PROVIDERS: Internal Medicine; Physician Assistant Medical; Student in an Organized Health Care Education/Training Program
DX: S32.592A Other specified fracture of left pubis, initial encounter for closed fracture (principal); N17.9 Acute kidney failure, unspecified; F03.90 Unspecified dementia, unspecified severity, without behavioral disturbance, psychotic disturbance, mood disturbance, and anxiety; D64.9 Anemia, unspecified; M06.00 Rheumatoid arthritis without rheumatoid factor, unspecified site; S32.302A Unspecified fracture of left ilium, initial encounter for closed fracture; M35.3 Polymyalgia rheumatica; Z79.52 Long term (current) use of systemic steroids; I10 Essential (primary) hypertension; F32.9 Major depressive disorder, single episode, unspecified; E78.5 Hyperlipidemia, unspecified; Z85.038 Personal history of other malignant neoplasm of large intestine; Z90.49 Acquired absence of other specified parts of digestive tract; K21.9 Gastro-esophageal reflux disease without esophagitis; W10.9XXA Fall (on) (from) unspecified stairs and steps, initial encounter; Y92.019 Unspecified place in single-family (private) house as the place of occurrence of the external cause; D72.829 Elevated white blood cell count, unspecified; E03.9 Hypothyroidism, unspecified; F41.9 Anxiety disorder, unspecified; K59.09 Other constipation; M81.0 Age-related osteoporosis without current pathological fracture; M79.645 Pain in left finger(s); J44.9 Chronic obstructive pulmonary disease, unspecified
CPT/HCPCS: 2NAP; 2NASP; 36415; 36592; 71045; 72170; 73502-LT; 73562-LT; 82436; 87086; 93005; 93010; 96374; 96375; 96376; 97110-GO; 97112-GO; 97162-GP; 97530-GO; J0131; J1644; J2405; J3490; J7042; J7512; J7626; J7633